=== PATIENT | female | born 1990 | race Caucasian/White ===

== ENCOUNTER → 2019-03-17 12:48 | Outpatient (CLI) | payer BC ==
[2019-03-17 14:53] LABS: APPEARANCE CLEAR (CLEAR); BILIRUBIN NEGATIVE (NEGATIVE); COLOR STRAW (YELLOW); GLUCOSE NEGATIVE (NEGATIVE); KETONE NEGATIVE (NEGATIVE); NITRITE NEGATIVE (NEGATIVE); PROTEIN NEGATIVE (NEGATIVE); SPECIFIC GRAVITY 1.005 (1.005-1.020); UROBILINOGEN NORMAL (NORMAL)
[2019-03-17 15:23] LABS: UDS - AMPHET POSITIVE QUAL (NEGATIVE); UDS - BARB NEGATIVE QUAL (NEGATIVE); UDS - BENZO NEGATIVE QUAL (NEGATIVE); UDS - COCAINE NEGATIVE QUAL (NEGATIVE); UDS - OPIATE NEGATIVE QUAL (NEGATIVE); UDS - PCP NEGATIVE QUAL (NEGATIVE); UDS - THC NEGATIVE QUAL (NEGATIVE)
[2019-03-21 16:08] LABS: CHLAMYDIA TRACHOMATIS, NAA Negative (Negative)
== END | disposition home or self-care (01) ==
LOC: D.LDO 12:48
PROVIDERS: ATTEND Obstetrics & Gynecology
DX: O26.899 Other specified pregnancy related conditions, unspecified trimester (principal); Z3A.00 Weeks of gestation of pregnancy not specified

== ENCOUNTER → 2019-03-18 16:46 | Outpatient (CLI) | payer BC ==
--- NOTE | 2019-03-18 16:45 | NUR ---
PHONE CALL MADE TO DR. BELLE IN THE OR, ASKING IF PT NEEDS EFM/TOCO OR JUST VITAL SIGNS AND SECOND CELESTONE INJECTION. TELEPHONE ORDERS RECEIVED TO ADMINISTER 2ND CELESTONE INJECTION, AND OBTAIN VS, AND UDS, IF PT DENIES CONTRACTIONS, NO EFM/TOCO REQUIRED. PT DENIES CONTRACTIONS, LEAKING OF FLUID, OR VAGINAL BLEEDING.
[2019-03-18 17:01] VITALS: BP 113/64
--- NOTE | 2019-03-18 17:03 | NUR ---
CELESTONE 12 MG IM GIVEN TO RIGHT VGM. PT KENAN WELL. SEE EMAR FOR ALL MEDS ADM BY THIS RN.
--- NOTE | 2019-03-18 17:20 | NUR ---
Upon entering bathroom to obtain voided specimen, urine cup is noted to be spilled onto bathroom floor. Phone call made to number listed on face sheet from today [phone], goes to voice mail, no message left at this time.
[2019-03-18 20:22] LABS: UDS - AMPHET NEGATIVE QUAL (NEGATIVE); UDS - BARB NEGATIVE QUAL (NEGATIVE); UDS - BENZO NEGATIVE QUAL (NEGATIVE); UDS - COCAINE NEGATIVE QUAL (NEGATIVE); UDS - OPIATE POSITIVE QUAL (NEGATIVE); UDS - PCP NEGATIVE QUAL (NEGATIVE); UDS - THC NEGATIVE QUAL (NEGATIVE)
== END | disposition home or self-care (01) ==
LOC: D.LDO 16:46
PROVIDERS: ATTEND Obstetrics & Gynecology
DX: O26.899 Other specified pregnancy related conditions, unspecified trimester (principal)

== ENCOUNTER → 2019-04-07 15:54 | Outpatient (CLI) | payer BC ==
[2019-04-07 18:30] LABS: APPEARANCE CLEAR (CLEAR); BILIRUBIN NEGATIVE (NEGATIVE); COLOR STRAW (YELLOW); GLUCOSE NEGATIVE (NEGATIVE); KETONE LARGE mg/dL (NEGATIVE); NITRITE NEGATIVE (NEGATIVE); PROTEIN TRACE mg/dL (NEGATIVE); SPECIFIC GRAVITY 1.005 (1.005-1.020); UROBILINOGEN NORMAL (NORMAL)
[2019-04-07 18:32] LABS: BACTERIA MODERATE /hpf (NONE SEEN); EPITHELIAL CELLS OCC /hpf (0-5); RED CELLS - URINE 0-5 /hpf (0-5); WHITE CELLS - URINE 0-5 /hpf (0-5)
[2019-04-07 18:45] LABS: UDS - AMPHET NEGATIVE QUAL (NEGATIVE); UDS - BARB NEGATIVE QUAL (NEGATIVE); UDS - BENZO NEGATIVE QUAL (NEGATIVE); UDS - COCAINE NEGATIVE QUAL (NEGATIVE); UDS - OPIATE NEGATIVE QUAL (NEGATIVE); UDS - PCP NEGATIVE QUAL (NEGATIVE); UDS - THC NEGATIVE QUAL (NEGATIVE)
== END | disposition home or self-care (01) ==
LOC: D.LDO 15:54
PROVIDERS: ATTEND Obstetrics & Gynecology
DX: O26.893 Other specified pregnancy related conditions, third trimester (principal); Z3A.33 33 weeks gestation of pregnancy

== ENCOUNTER → 2019-04-14 13:00 | Outpatient (CLI) | payer BC | END | disposition home or self-care (01) | LOC: D.LDO 13:00 | PROVIDERS: ATTEND Obstetrics & Gynecology | DX: O26.899 Other specified pregnancy related conditions, unspecified trimester (principal); Z3A.00 Weeks of gestation of pregnancy not specified ==

== ENCOUNTER → 2019-04-21 10:05 | Outpatient (CLI) | payer BC | END | disposition home or self-care (01) | LOC: D.LDO 10:05 | PROVIDERS: ATTEND Obstetrics & Gynecology | DX: O26.899 Other specified pregnancy related conditions, unspecified trimester (principal); Z3A.00 Weeks of gestation of pregnancy not specified ==

== ENCOUNTER 2019-05-14 02:45 | Inpatient (IN) | payer BC ==
[~2019-05-14] VITALS: Ht 162.6 cm; Wt 49.5 kg
[2019-05-14 04:26] LABS: HEMATOCRIT 35.5 % (36.0-48.0); HEMOGLOBIN 12.5 g/dL (12-16); MCH 33.3 pg (26.0-34.0); MCHC 35.2 g/dL (31.0-37.0); MCV 94.7 fL (80.0-100.0); MEAN PLATELET VOLUME 10.8 fL (7.4-10.4); RBC 3.75 10x6/uL (4.00-5.40); RDW 12.7 % (11.5-14.5); WBC 14.5 10x3/uL (4.8-10.8)
[2019-05-14 04:27] VITALS: BP 116/72; Ht 162.6 cm; Wt 49.5 kg
[2019-05-14] MEDS ORDERED: MELATONIN10 M1 PO (04:32)
--- NOTE | 2019-05-14 07:10 | NUR ---
ASSUMED CARE OF THIS PATIENT. SITTING UP IN BED WITH SKIN TO SKIN. NEEDS TO VOID. ASSISTED UP TO BATHROOM. C/O PERINEAL PAIN, RECIEVED MOTRIN EARLIER AND HAS ICE PACK TO PERINEUM. INSTRUCTED ON USE OF YOBANI-BOTTLE WITH BETADINE WHICH WAS USED. VOIDED WITHOUT DIFFICULTY. CLEAN PADS AND PER-PANTS ON PER PATIENT. AMBULATED TO CLEAN ROOM 1274. INFANT AND FOB TO ROOM, ALL BELONGINGS REMOVED FROM ROOM. RUBRA SMALL TO MOD, PASSED ONE SMALL CLOT IN COMMODE, U/2 FIRM MIDLINE. REGULAR DIET WAS ORDERED. ORIENTED TO NEW ROOM AFTER TRANSFER. SIDE RAIL UP X 2, CALL LIGHT IN REACH. TO CALL IF ANYTHING IS NEEDED. PLANS TO BREASTFEED. Ab POSITIVE, RUBELLA NON-IMMUNE, SMOKER DESIRES SMOKING CESSATION INFORMATION AND NICOTINE PATCH. WILL NEED TO CHECK TDAP STATUS. FRESH WATER GIVEN.
[2019-05-14 08:34] VITALS: BP 108/72
--- NOTE | 2019-05-14 08:46 | NUR ---
SHIFT ASSESSMENT COMPLETED. DENIES NEEDING ANYTHING. 12/09 PERINEAL PAIN. 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 REMINDED NOT TO SLEEP WITH INFANT IN ARMS. PLANS TO TAKE A QUICK NAP. SIDERAILS UP X2, CALL LIGHT IN REACH. ICE PACK PLACED ON PERINEAL AREA.
--- NOTE | 2019-05-14 10:32 | NUR ---
MOTRIN 600 MG GIVEN PO FOR C/O 03/09 ABDOMINAL CRAMPING. STATES "I'VE BEEN ". DECLINES NICODERM PATCH AT THIS TIME. STATES "LET'S HOLD OFF BECAUSE I DON'T EVEN FEEL A CRAVING RIGHT NOW." TO LET THIS RN KNOW IF SHE DECIDES SHE WANTS SOMETIME TODAY. VERBALIZED UNDERSTANDING. REMINDED TO KEEP BLADDER EMPTY. SIDERAILS UP X 2. CALL LIGHT INREACH.
--- NOTE | 2019-05-14 12:13 | NUR ---
SITTING UP IN BED HOLDING . VISITORS IN ROOM. SAYS HER CRAMPING IS BETTER /. NO REQUESTS. HAS VOIDED. TO CALL IF ANYTHING IS NEEDED.
--- NOTE | 2019-05-14 14:10 | NUR ---
SITTING UP TALKING TO VISITORS. DENIES NEEDING ANYTHING. INFANT IN ARMS. TO CALL IF ANYTHING IS NEEDED.
[2019-05-14 15:45] VITALS: BP 109/55
--- NOTE | 2019-05-14 16:00 | NUR ---
MOTRIN 600 MG GIVEN PO FOR 3-4/10 CRAMPING. U/2 FIRM MIDLINE, RUBRA SMALL TO MOD. UP TO BATHROOM TO VOID AND CHANGE YOBANI-PAD. FOB SLEEPING ON COUCH. IN CRIB. NO REQUESTS. TO CALL IF ANYTHING IS NEEDED.
--- NOTE | 2019-05-14 17:05 | NUR ---
SITTING UP EATING DINNER. 0/10 PAIN. FRESH WATER GIVEN. UP AD NOEL. INFANT SLEEPING IN CRIB. NO REQUESTS. SIDERAILS UP X 2, CALL LIGHT IN REACH.
--- NOTE | 2019-05-14 19:20 | NUR ---
PT. LYING ON BED WITH HOB AT 45 DEGREES. NUMEROUS VISITORS AT BEDSIDE.
[2019-05-14 19:30] VITALS: BP 116/69
--- NOTE | 2019-05-14 19:30 | NUR ---
PT. AWAKE AND ORIENTED. INFANT IN ROOM. NBN NURSE CHECKING . PT. DENIES ANY PAIN. FUNDUS FIRM U/3 AND LOCHIA RUBRA MOD. DENIES ANY PAIN IN LOWER EXTREMITIES. BREATH SOUNDS CLEAR AND BOWEL SOUNDS AUDIBLE. VITAL SIGNS OBTAINED.
--- NOTE | 2019-05-14 20:52 | NUR ---
SITTING UP IN BED WITH HOB AT 45 DEGREES HOLDING . DENIES ANY NEEDS . OFFERED FOOD IF SHE WAS HUNGRY. STATES SHE ATE SUPPER TRAY AND FOB WENT AND GOT HER MORE FOOD SO SHE DID NOT NEED ANYTHING FURTHER. CHEERFUL. FOB AT BEDSIDE.
--- NOTE | 2019-05-14 22:32 | NUR ---
ROUNDS MADE. RESTING QUIETLY ON RIGHT SIDE. RESPIRATIONS REGULAR AND UNLABORED WITH NO S/S OF DISTRESS. INFANT RESTING QUIETLY IN OPEN CRIB AT BEDSIDE. BED IN LOW POSITION WITH UPPER SIDE RAILS RAISED X2. CALL LIGHT AND PHONE WITHIN REACH. WILL CONTINUE TO MONITOR.
--- NOTE | 2019-05-14 23:34 | NUR ---
PT. AT PRESENT. STATES SHE DESIRES MOTRIN FOR ABD CRAMPING. SAME GIVEN . ICE WATER PROVIDED. FOB SLEEPING ON SOFA.
--- NOTE | 2019-05-15 00:30 | NUR ---
LYING ON RT. SIDE. TURNED TOWARD DOOR WHEN OPENED. REPORTS PAIN IS A 1 OF 10 ON PAIN SCALE. IN OPEN CRIB AT BEDSIDE.
--- NOTE | 2019-05-15 02:19 | NUR ---
LAYING ON RT SIDE. PAIN /, ABD CRAMPING, DENIES NEED FOR INTERVENTION. DENIES NEEDS. TO NBN FOR V/S, WEIGHT CHECK, HEP B INJ, AND HEARING SCREEN. BED IN LOW POSITION WITH UPPER SIDE RAILS RAISED X2. CALL LIGHT AND PHONE WITHIN REACH. REPORTED TO Steph TAYLOR RN.
--- NOTE | 2019-05-15 03:15 | NUR ---
INFANT BACK TO ROOM IN OPEN CRIB. ID BANDS MATCHED. INFANT HANDED TO PT SWADDLED IN 1 BLANKET FOR BREAST FEEDING. DENIES NEED FOR ASSISTANCE. ENCOURAGED TO CALL IF NEED FOR HELP WITH BREAST FEEDING ARISES, VERBALIZES APPRECIATION AND UNDERSTANDING.
--- NOTE | 2019-05-15 05:18 | NUR ---
ROOM CHECK DONE. PT NOTED TO HAVE EYES CLOSED, AROUSES TO VOICE. EDUCATED ON NOT SLEEPING WITH INFANT IN BED AND THAT WHEN SHE SLEEPS MUST BE IN CRIB. VERBALIZES UNDERSTANDING. STATES "I JUST FINISHED FEEDING AND DIDN'T MEAN TO DOZE OFF." INFANT SWADDLED AND PLACED IN OPEN CRIB. SKIN W/D. COLOR WNL. RESP REGULAR AND UNLABORED, NO S/S OF DISTRESS NOTED. REPORTS THAT NURSED FOR 10 MINUTES ON RIGHT BREAST AT 0450. DENIES NEEDS AND PAIN. BED IN LOW POSITION WITH UPPER SIDE RAILS RAISED X2. CALL LIGHT AND PHONE WITHIN REACH. WILL CONTINUE TO MONITOR.
--- NOTE | 2019-05-15 05:42 | NUR ---
DR. ARENAS MAKING ROUNDS ON PATIENT.
--- NOTE | 2019-05-15 06:14 | NUR ---
RATES ABD. CRAMPING A 5 OF 10 ON PAIN SCALE . LYING ON BED IN FRONT OF PT.
--- NOTE | 2019-05-15 07:06 | NUR ---
ASSUMED CARE OF THIS PATIENT. CURRENTLY SLEEPING TILTED TO RIGHT SIDE. RESPIRATIONS EVEN. FOB ON COUCH. INFANT IN CRIB. WILL COMPLETE SHIFT ASSESSMENT WHEN AWAKE.
--- NOTE | 2019-05-15 08:05 | NUR ---
SITTING UP IN BED. JUST FINISHED EATING BREAKFAST. ANTICIPATES DC HOME TODAY. DR ARENAS VISITED EARLY THIS AM. FOB AND INFANT IN ROOM. DENIES NEEDING ANYTHING. 12/09 CRAMPING. SIDERAILS UP X 2 CALL LIGHT IN REACH.
[2019-05-15 08:45] VITALS: BP 120/72
--- NOTE | 2019-05-15 08:45 | NUR ---
SHIFT ASSESSMENT COMPLETED. DISCUSS TDAP AND MMR. PER [facility] IMMUNIZATIONS RECORD THERE IS NO DOCUMENTATION OF RECEIVING TDAP. PER OB CLINIC RECORDS PT DID NOT RECIEVE DURING . DESIRES BOTH PRIOR TO DC. NO REQUEST AT THIS TIME. TO CALL IF ANYTHING IS NEEDED. HAS BEEN WITHOUT DIFFICULTY.
[2019-05-15 09:02] LABS: BASOPHILS 0.1 % (0-2); EOSINOPHILS 1.1 % (0-7); HEMATOCRIT 34.3 % (36.0-48.0); HEMOGLOBIN 11.9 g/dL (12-16); IMMATURE GRANULOCYTES 0.3 % (0-5); LYMPHOCYTES 25.7 % (15-50); MCH 33.1 pg (26.0-34.0); MCHC 34.7 g/dL (31.0-37.0); MCV 95.3 fL (80.0-100.0); MEAN PLATELET VOLUME 11.1 fL (7.4-10.4); MONOCYTES 4.3 % (2-11); NEUTROPHILS 68.5 % (40-80); PLATELET COUNT 194 10x3/uL (130-400); RDW 12.9 % (11.5-14.5)
[2019-05-15 09:03] LABS: WBC 7.2 10x3/uL (4.8-10.8)
--- NOTE | 2019-05-15 09:16 | NUR ---
SITTING UP IN BED TALKING TO VISITORS. DENIES NEEDING ANYTHING AT THIS TIME. REMAINS IN ROOM.
[2019-05-15] MEDS ORDERED: IBUPROFEN600 MG PO (09:52)
[2019-05-15] MEDS ORDERED: HYDROCODON-ACE1 EAC7 PO (09:53)
--- NOTE | 2019-05-15 10:50 | NUR ---
SITTING UP IN BED HOLDING . VISITORS X 3 IN ROOM. NO REQUESTS. RECEIVED VERBAL AND WRITTEN INFORMATION ON TDAP AND MMR. PT GIVEN AR IMMUNIZATION RECORD. ACCORDING TO RECORDS WILL NEED TDAP. RUBELLA NON-IMMUNE WILL NEED MMR. PT DESIRES BOTH IMMUNIZATIONS PRIOR TO DISCHARGE. DENIES NEEDING ANYTHING ELSE AT THIS TIME. SIDERAILS UP X2, CALL LIGHT IN REACH. ANITICIPATE DC HOME TODAY.
--- NOTE | 2019-05-15 11:47 | NUR ---
MOTRIN 600 MG GIVEN PO FOR RELIEF OF CRAMPING. DESIRED TDAP AND MMR. BOTH WERE GIVEN TODAY. SEE E-MAR. INSTRUCTED ON IMPORTANCE OF AVOIDING AFTER RECEIVING MMR. VERBALIZED UNDERSTANDING. VISITORS AND INFANT IN ROOM. NO ADDITIONAL REQUESTS AT THIS TIME.
--- NOTE | 2019-05-15 12:44 | NUR ---
HAS DC ORDER. DR ARENAS NOTIFIED, ALSO GAVE H&H RESULTS TO . ORDERS RECEIVED TO DC HOME.
--- NOTE | 2019-05-15 13:25 | NUR ---
PT DESIRED TOBACCO CESSATION REFERAL. SENT REFERRAL FORM TO THE [facility] AND [facility] CASE MANAGEMENT.
--- NOTE | 2019-05-15 13:37 | NUR ---
12/09 INTERMITTENT CRAMPING. DC TEACHING COMPLETED TO INCLUDE ROUTINE PP CARE, PP DEPRESSION, SIGNS OF INFECTION, DANGER SIGNS, SMOKING CESSATION, /BREAST CARE, MEDICATION ADMINISTRATION AND F/U. NO SPECIFIC QUESTIONS ASKED. REMINDED TO AVOID AFTER RECEIVING MMR. PLANS BTL AT SIX WEEKS. AMBULATED TO NURSERY WITH AND FOB TO RECEIVE DC TEACHING.
--- NOTE | 2019-05-15 14:06 | NUR ---
DC'D VIA WHEELCHAIR TO CAR. IN CARSEAT. FOB DRIVING. ALL BELONGINGS REMOVED FROM ROOM. HAS DC INSTRUCTIONS AND PRESCRIPTIONS.
--- NOTE | 2019-05-16 13:15 | MORECARE ---
CASE MANAGEMENT DISCHARGE SUMMARY PATIENT: GRETA SHETH UNIT: [id number] ADM DATE: 05/14/19 AGE: 28 : [birth year] SEX: F ROOM/BED: D[facility] AUTHOR: BHAVANA HAYES PHYSICIAN: REFERRING PHYSICIAN: SHALA ARENAS MD DATE OF SERVICE: 05/16/19 Discharge Plan Patient Name: GRETA SHETH Facility: [facility]:[place] : 1990 Planned Disposition: Anticipated Discharge Date: Discharge Date: 05/15/2019 Expected LOS: Initial Reviewer: [email or web address] Initial Review Date: 05/16/2019 Generated: 05/16/19 2:15 pm Patient Name: GRETA SHETH Page [id number] at 1315 All edits/amendments must be made on the electronic document DICTATION DATE: 05/16/19 1314 RIGGING FOREMAN: JACOB 05/16/19 1314 RPT#: [id number] DC DATE:05/15/19 STATUS: DIS IN [facility] [address] [place] [address] END OF REPORT
[2019-05-17 03:08] LABS: RAPID PLASMA REAGIN Non Reactive (Non Reactive)
== END 2019-05-15 14:06 | disposition home or self-care (01) | DRG 807 ==
LOC: D.LD 02:45
PROVIDERS: ADMIT Obstetrics & Gynecology; ATTEND Obstetrics & Gynecology
PROC: 10E0XZZ Delivery of Products of Conception, External Approach (ICD-10-PCS; principal; 2019-05-14)
DX: O62.3 Precipitate labor (principal); Z37.0 Single live birth; O80 Encounter for full-term uncomplicated delivery; Z3A.38 38 weeks gestation of pregnancy; O99.334 Smoking (tobacco) complicating childbirth; R87.610 Atypical squamous cells of undetermined significance on cytologic smear of cervix (ASC-US); O69.1XX0 Labor and delivery complicated by cord around neck, with compression, not applicable or unspecified

== ENCOUNTER 2019-07-01 05:35 | Day surgery (SDC) | payer BC ==
[2019-06-29 14:17] LABS: BASOPHILS 0.2 % (0-2); EOSINOPHILS 1.7 % (0-7); HEMATOCRIT 43.4 % (36.0-48.0); HEMOGLOBIN 15.1 g/dL (12-16); MCH 33.3 pg (26.0-34.0); MCHC 34.8 g/dL (31.0-37.0); MCV 95.6 fL (80.0-100.0); MEAN PLATELET VOLUME 10.6 fL (7.4-10.4); MONOCYTES 6.8 % (2-11); NEUTROPHILS 59.3 % (40-80); RBC 4.54 10x6/uL (4.00-5.40); RDW 12.7 % (11.5-14.5); WBC 5.3 10x3/uL (4.8-10.8)
[2019-06-29 14:24] LABS: PLATELET COUNT 233 10x3/uL (130-400)
[~2019-07-01] VITALS: Ht 162.6 cm; Wt 44.0 kg
[~2019-07-01 05:35] MED LIST: HYDROCODON-ACE1 EAC7 PO; IBUPROFEN600 MG PO; MELATONIN10 M1 PO
[2019-07-01 06:04] VITALS: Ht 162.6 cm; Wt 44.0 kg
[2019-07-01 06:10] LABS: HCG URINE NEGATIVE (NEGATIVE)
--- NOTE | 2019-07-01 09:57 | NUR ---
0945-REC'D FROM RR. AWAKE AND ALERT, REPORTS PAIN IS COMFORTABLE. TWO BANDAIDS TO ABDOMEN, CDI. IV PATENT AT KVO. VSS. LIQUID TRAY TO ROOM. CL IN EASY REACH AND MOTHER AT BEDSIDE
--- NOTE | 2019-07-01 11:11 | NUR ---
1030- TOLERATED FULL LIQUID TRAY. ABLE TO AMBULATE TO RESTROOM AND URINATE WITHOUT COMPLICATIONS. AWAITING FOR DISCHARGE ORDERS FROM DR. ARENAS. VSS
--- NOTE | 2019-07-01 11:39 | NUR ---
1130-ORDER'S REC'D.DISCONTINUED IV FROM RIGHT HAND WITH CATH INTACT,DISPOSED INTO SHARPS.COVERED WITH BANDAID. REVIEWED DISCHARGE INSTRUCTIONS. VERBALIZED UNDERSTANDING,ESCORTED OUT VIA W/C BY OUTPT STAFF. DENIES COMPLAINTS OR FURTHER QUESTIONS.PAPERWORK IN HAND
--- NOTE | 2019-08-15 13:26 | OP ---
PATIENT NAME: GRETA ESCOBAR MEDICAL RECORD: [id number] :[birth year] LOCATION:D.[facility] ADMISSION DATE: SURGEON: SHALA COBIAN MD DATE OF OPERATION: 07/01/2019 PREOPERATIVE DIAGNOSES: 1. The patient desires permanent sterility. 2. Right Bartholin cyst. POSTOPERATIVE DIAGNOSES: 1. The patient desires permanent sterility. 2. Right Bartholin cyst. PROCEDURES: 1. Laparoscopic bilateral tubal ligation using bipolar cautery. 2. Marsupialization of right Bartholin gland cyst. SURGEON: Shala Cobian MD ANESTHESIA: General endotracheal. INTRAVENOUS FLUIDS: Per anesthesia records. SPECIMENS: None. FINDINGS: 1. Grossly normal-appearing adnexa, fallopian tubes, ovaries, and uterus. 2. Right Bartholin gland cyst approximately 3-4 cm in diameter. COMPLICATIONS: None apparent. DESCRIPTION OF PROCEDURE: The patient taken to the operating room, where general anesthesia was achieved without any difficulty. The patient then prepped and draped in normal sterile fashion in the dorsal lithotomy position in the [facility]. The vagina and perineum were prepped as well as the abdomen. The patient was draped, and the bladder was drained of approximately 100 cc of clear urine. A 5-mm skin incision was made at the inferior aspect of the umbilicus and a 5-mm bladeless trocar was used to enter the intraperitoneal space under direct visualization of the laparoscope. The carbon dioxide gas was turned on. Opening pressure was found to be less than 5 mmHg. The patient was insufflated and a second 5-mm port was created by making a 5-mm skin incision in the midline approximately 3-4 cm above the pubic symphysis. The 5-mm bladeless trocar was then used to enter the intraperitoneal space under direct visualization of the laparoscope. Survey of the abdomen and pelvis was performed. Attention was then turned to the bilateral fallopian tubes, where the U[employer]og[employer]el bipolar cautery instrument was used to completely desiccate approximately 4 cm of the mid portion of the two. Good hemostasis was noted from both fallopian tubes following cauterization. The patient was gently desufflated and no bleeding was evident. The patient was then fully desufflated and the trocars were removed. The skin was repaired with 3-0 Vicryl in an interrupted fashion. Attention was then turned to the right Bartholin gland on the mucosal side. An 11 blade was used to excise through the vaginal mucosa and into the Bartholin cyst cavity. The mucosal and cyst wall edges were then carefully demarcated and interrupted OPERATIVE REPORT [id number] GRETA ESCOBAR 3-0 Monocryl sutures were then used to create circumferential row of sutures connecting the cyst wall to the mucosa. A Word catheter was then placed into the puncture site and inflated without any difficulty. Minimal bleeding was noted. The patient tolerated the procedure well, transferred to the postanesthesia recovery stable without incident. TRANSINT:[id number] Voice Confirmation ID: [id number] DOCUMENT ID: [id number] SHALA COBIAN MD at 1326 CC: [id number] DICTATION DATE: 08/12/19909 TECHNICAL ADJUSTER: 08/12/19 1038 [facility] 07/01/[address] [address]
== END 2019-07-01 11:30 | disposition home or self-care (01) ==
LOC: D.OPS 05:35 → D.PAN 07:30 → D.OPS 11:30
PROVIDERS: ATTEND Obstetrics & Gynecology
DX: N75.0 Cyst of Bartholin's gland (principal); Z30.2 Encounter for sterilization